=== PATIENT | female | born 1990 | race Caucasian/White ===

== ENCOUNTER → 2020-06-03 | Outpatient (CLI) | payer BC, OTHER | LOC: KOH-I 10:00 | DX: R10.84 Generalized abdominal pain (principal) | CPT/HCPCS: 74176 ==

== ENCOUNTER → 2020-11-19 | Outpatient (CLI) | payer BC | LOC: KOH-I 08:44 | DX: M25.561 Pain in right knee (principal); S83.011A Lateral subluxation of right patella, initial encounter | CPT/HCPCS: 73721 ==

== ENCOUNTER 2020-11-27 19:13 | Emergency (ER) | payer BC ==
[2020-11-27 20:24] LABS: HEMOGLOBIN 14.3 gm/dl (12.3-15.3); RED BLOOD COUNT 4.72 M/UL (4.00-5.10); WHITE BLOOD COUNT 11.9 K/UL (4.5-11.0)
[2020-11-27 20:42] LABS: BUN/CREATININE RATIO 14 (0-10)
== END 2020-11-27 21:40 | disposition home or self-care (01) ==
LOC: ER1 19:13
PROVIDERS: Family Medicine
DX: S83.004A Unspecified dislocation of right patella, initial encounter (principal); X58.XXXA Exposure to other specified factors, initial encounter
CPT/HCPCS: 80053; 85025; 85379; 99283